=== PATIENT | male | born 1940 | race Caucasian/White ===

== ENCOUNTER 2018-03-04 07:25 | Inpatient (IN) | payer MEDICARE, OTHER ==
[~2018-03-04] VITALS: Ht 177.8 cm; Wt 79.0 kg
[2018-03-04] MEDS ORDERED: morphine 4 MG/ML inj SYRINge IV ONE ×3 (07:40→09:05)
[2018-03-04 07:56] LABS: BASOPHILS # (AUTO) 0.1 X10'3 (0-0.2); BASOPHILS % (AUTO) 0.9 % (0-1); EOSINOPHILS # (AUTO) 0.2 X10'3 (0-0.9); EOSINOPHILS % (AUTO) 2.8 % (0-6); HEMATOCRIT 44.8 % (42.0-52.0); HEMOGLOBIN 15.3 g/dl (14.0-17.9); LYMPHOCYTES # (AUTO) 1.3 X10'3 (1.1-4.8); LYMPHOCYTES % (AUTO) 15.4 % (21-51); MEAN CORPUSCULAR HGB CONC 34.2 % (33.0-36.5); MEAN CORPUSCULAR VOLUME 93.5 FL (78-98); MEAN PLATELET VOLUME 7.8 FL (7.4-10.4); MONOCYTES # (AUTO) 0.7 X10'3 (0-0.9); MONOCYTES % (AUTO) 8.3 % (2-12); NEUTROPHILS # (AUTO) 6.2 X10'3 (1.8-7.7); NEUTROPHILS % (AUTO) 72.6 % (42-75); PLATELET COUNT 252 X10'3 (140-440); RED CELL DISTRIBUTION WIDTH 12.5 % (11.5-14.5); WHITE BLOOD COUNT 8.6 X10'3 (4.5-11.0)
[2018-03-04 08:29] LABS: INR 0.9 INR; PARTIAL THROMBOPLASTIN TIME 28 SECONDS (22-32); PROTHROMBIN TIME 9.8 SECONDS (9.0-12.0)
[2018-03-04 08:38] LABS: ALANINE AMINOTRANSFERASE 13 U/L (12-78); ALBUMIN 3.1 G/DL (3.4-5.0); ALBUMIN/GLOBULIN RATIO 0.7 (1.1-1.5); ALKALINE PHOSPHATASE 58 IU/L (46-116); ANION GAP 10 (8-16); ASPARTATE AMINO TRANSFERASE 20 U/L (10-37); BILIRUBIN,TOTAL 1.3 MG/DL (0.1-1.0); BLOOD UREA NITROGEN 11 MG/DL (7-18); BUN/CREATININE RATIO 13.8 (5.4-32.0); CALCIUM 9.1 MG/DL (8.5-10.1); CHLORIDE 102 MMOL/L (99-107); GLUCOSE 108 MG/DL (70-104); POTASSIUM 3.9 MMOL/L (3.5-5.1); SODIUM 137 MMOL/L (135-145); TOTAL CARBON DIOXIDE 24.8 MMOL/L (24-32); TOTAL PROTEIN 7.4 G/DL (6.4-8.2); eGFR > 90 ML/MIN
[2018-03-04 08:42] LABS: D-DIMER 0.85 MG/L FEU (0-0.50)
[2018-03-04] MEDS ORDERED: iohexol 350MG/ML 100ml bottle IV ONE (09:28)
[2018-03-04] MEDS ORDERED: mag hydrox/Alum hydrox/simeth 30ml oral suspension PO PRN (11:45)
[2018-03-04] MEDS ORDERED: bisacodyl 10mg suppository rectal RC PRN (11:45)
[2018-03-04] MEDS ORDERED: acetaminophen 650mg rectal suppository RC PRN (11:45)
[2018-03-04] MEDS ORDERED: HYDROcodone/acetaminophen 10/325mg tab PO PRN (11:45)
[2018-03-04] MEDS ORDERED: acetaminophen 325mg tablet PO PRN ×2 (11:45)
[2018-03-04] MEDS ORDERED: HYDROmorphone inj. 0.5 MG/0.5 ML DISP.SYRIN IV PRN ×2 (11:45)
[2018-03-04] MEDS ORDERED: metoclopramide 5 mg/ml inj IV PRN (11:45)
[2018-03-04] MEDS ORDERED: ondansetron/PF 4mg/2ml inj IV PRN (11:45)
[2018-03-04] MEDS ORDERED: diphenhydrAMINE 25mg capsule PO PRN (11:45)
[2018-03-04] MEDS ORDERED: morphine 4 MG/ML inj SYRINge IV PRN ×2 (11:45)
[2018-03-04] MEDS ORDERED: magnesium hydroxide 30ml (MOM) UD suspension PO PRN (11:45)
[2018-03-04] MEDS ORDERED: HYDROcodone/acetaminophen 5mg/325mg tablet PO PRN (11:45)
[2018-03-04] MEDS ORDERED: diphenhydrAMINE 50 mg/ml inj IV PRN (11:45)
[2018-03-04] MEDS ORDERED: hydrALAZINE 20mg/ml inj. IV PRN (11:50)
[2018-03-04] MEDS ORDERED: enalaprilat dihydrate 2.5mg/2ml vial IV ONE (11:55)
[2018-03-04] MEDS: atorvastatin 20mg tablet PO SCH (13:59)
[2018-03-04 14:23] LABS: HEMOGLOBIN A1C 5.1 % (4.5-6.2)
[2018-03-04 14:31] LABS: PHOSPHORUS 4.2 MG/DL (2.3-4.5)
[2018-03-04 15:00] VITALS: BP_SYST 111; BP_SYST 125; BP_DIAS 64; BP_DIAS 67
[2018-03-04] MEDS: dextrose 5%-1/2 normal saline 1,000 ML IV SCH ×2 (15:06→20:59)
[2018-03-04] MEDS: ketorolac tromethamine 15mg/ml inj. IV SCH (16:44)
[2018-03-04 16:56] LABS: URINE AMPHETAMINE SCREEN NEGATIVE (Neg); URINE BARBITUATE SCREEN NEGATIVE (Neg); URINE BENZODIAZEPINES SCREEN NEGATIVE (Neg); URINE CANNABINOID SCREEN NEGATIVE (Neg); URINE COCAINE SCREEN NEGATIVE (Neg); URINE METHADONE SCREEN NEGATIVE (Neg); URINE OPIATE SCREEN POSITIVE (Neg); URINE PHENCYCLIDINE SCREEN NEGATIVE (Neg)
[2018-03-04 19:00] VITALS: BP 92/69
[2018-03-04] MEDS: docusate sod 100mg capsule PO SCH (20:00)
[2018-03-04] MEDS: heparin, porcine 5000 units/ml vial SQ SCH (20:52)
[2018-03-04] MEDS: methylPREDNISolone sod succ 125mg/2ml vial IV SCH (20:52)
[2018-03-04] MEDS: pantoprazole 40 MG vial IV SCH (20:53)
[2018-03-04] MEDS ORDERED: temazepam 15mg capsule PO PRN (21:00)
[2018-03-04 23:00] VITALS: BP 102/59
[2018-03-05 03:00] VITALS: BP 102/60
[2018-03-05 06:00] VITALS: BP 117/66
[2018-03-05 06:00] LABS: BASOPHILS % (AUTO) 0.1 % (0-1); EOSINOPHILS % (AUTO) 0 % (0-6); HEMATOCRIT 40.7 % (42.0-52.0); HEMOGLOBIN 14.2 g/dl (14.0-17.9); LYMPHOCYTES # (AUTO) 0.6 X10'3 (1.1-4.8); LYMPHOCYTES % (AUTO) 6.8 % (21-51); MEAN CORPUSCULAR HEMOGLOBIN 32.2 PG (27.0-31.0); MEAN CORPUSCULAR HGB CONC 34.8 % (33.0-36.5); MEAN CORPUSCULAR VOLUME 92.5 FL (78-98); MEAN PLATELET VOLUME 7.9 FL (7.4-10.4); MONOCYTES # (AUTO) 0.3 X10'3 (0-0.9); NEUTROPHILS # (AUTO) 7.5 X10'3 (1.8-7.7); NEUTROPHILS % (AUTO) 90.1 % (42-75); PLATELET COUNT 209 X10'3 (140-440); RED CELL DISTRIBUTION WIDTH 12.6 % (11.5-14.5); WHITE BLOOD COUNT 8.3 X10'3 (4.5-11.0)
[2018-03-05 06:16] LABS: ALANINE AMINOTRANSFERASE 14 U/L (12-78); ALBUMIN 2.5 G/DL (3.4-5.0); ALBUMIN/GLOBULIN RATIO 0.6 (1.1-1.5); ALKALINE PHOSPHATASE 43 IU/L (46-116); ANION GAP 6 (8-16); ASPARTATE AMINO TRANSFERASE 13 U/L (10-37); BILIRUBIN,TOTAL 0.9 MG/DL (0.1-1.0); BLOOD UREA NITROGEN 16 MG/DL (7-18); BUN/CREATININE RATIO 19.3 (5.4-32.0); CALCIUM 8.9 MG/DL (8.5-10.1); CHLORIDE 101 MMOL/L (99-107); CHOL/HDL RATIO 1.6 (0.00-4.99); CHOLESTEROL 160 MG/DL (0-200); CREATININE 0.83 MG/DL (0.60-1.10); GLUCOSE 212 MG/DL (70-104); HDL CHOLESTEROL 102 MG/DL (35-60); LDL CHOLESTEROL 56 MG/DL (50-100); SODIUM 134 MMOL/L (135-145); TOTAL CARBON DIOXIDE 27.5 MMOL/L (24-32); TOTAL PROTEIN 6.7 G/DL (6.4-8.2); TRIGLYCERIDES 35 MG/DL (20-135); eGFR 90 ML/MIN
[2018-03-05] MEDS: pantoprazole 40 MG vial IV SCH (07:37)
[2018-03-05] MEDS: methylPREDNISolone sod succ 125mg/2ml vial IV SCH (07:38)
[2018-03-05] MEDS: docusate sod 100mg capsule PO SCH (07:38)
[2018-03-05] MEDS: heparin, porcine 5000 units/ml vial SQ SCH (07:38)
[2018-03-05] MEDS: atorvastatin 20mg tablet PO SCH (07:39)
[2018-03-05] MEDS: ketorolac tromethamine 15mg/ml inj. IV SCH ×2 (07:44)
[2018-03-05] MEDS: dextrose 5%-1/2 normal saline 1,000 ML IV SCH ×2 (07:45→11:27)
[2018-03-05] MEDS ORDERED: aspirin 81mg tablet.DR PO SCH (08:30)
[2018-03-05 11:00] VITALS: BP 107/65
== END 2018-03-05 14:20 | disposition home or self-care (01) | DRG 380 ==
LOC: ER 07:26 → ED HOLD 11:45 → PCU 3S 14:35
PROVIDERS: ADMIT Family Medicine; ATTEND Family Medicine
PROC: B32T1ZZ Computerized Tomography (CT Scan) of Left Pulmonary Artery using Low Osmolar Contrast (ICD-10-PCS; principal; 2018-03-04)
PROC: B3201ZZ Computerized Tomography (CT Scan) of Thoracic Aorta using Low Osmolar Contrast (ICD-10-PCS; 2018-03-04)
PROC: B32S1ZZ Computerized Tomography (CT Scan) of Right Pulmonary Artery using Low Osmolar Contrast (ICD-10-PCS; 2018-03-04)
DX: K22.70 Barrett's esophagus without dysplasia (principal); I50.23 Acute on chronic systolic (congestive) heart failure; I16.1 Hypertensive emergency; I30.9 Acute pericarditis, unspecified; J98.11 Atelectasis; J43.9 Emphysema, unspecified; F41.0 Panic disorder [episodic paroxysmal anxiety]; K76.89 Other specified diseases of liver; E78.5 Hyperlipidemia, unspecified; I08.0 Rheumatic disorders of both mitral and aortic valves; F51.4 Sleep terrors [night terrors]; I11.0 Hypertensive heart disease with heart failure; I25.10 Atherosclerotic heart disease of native coronary artery without angina pectoris; I49.3 Ventricular premature depolarization; K21.9 Gastro-esophageal reflux disease without esophagitis; Z82.49 Family history of ischemic heart disease and other diseases of the circulatory system
CPT/HCPCS: 36415; 70450; 71045; 71275; 80053; 80061; 80305; 83036; 83735; 83880; 84100; 84443; 84484; 85025; 85379; 85610; 85651; 85730; 87070; 93005; 93306; 96374; 96376; 99285; C9113; J1644; J1885; J2270; J2930; J7030; J7120; Q9967